=== PATIENT | male | born 1985 | race Caucasian/White ===

== ENCOUNTER 2017-07-17 15:08 | Emergency (ER) | payer SELFPAY ==
[2017-07-17] MEDS ORDERED: ONDANSETRON 4 MG/2 ML VIAL ONE (15:47)
[2017-07-17] MEDS ORDERED: MORPHINE 4 MG/ML SYR ONE ×2 (15:47→16:32)
[2017-07-17] MEDS ORDERED: NA CHLORIDE 0.9% 1,000 ML ONE (15:52)
[2017-07-17 16:13] LABS: Absolute Lymphocytes (CBC) 1.6 K/uL (0.7-4.9); Absolute Monocytes 0.7 K/uL (0.1-1.3); Absolute Neutrophil 6.2 K/uL (1.8-8.0); Basophils % 0.7 % (0-1.3); Eosinophils % 1.7 % (0-4.4); Hematocrit 46.8 % (39.6-49.0); Lymphocytes % 18.8 % (15.3-44.8); MCH 29.1 pg (27.0-35.0); MCV 83.4 fL (80-100); MPV 8.1 fL (7.6-11.3); Monocytes % 7.5 % (3.3-12.3); RBC Red Blood Cell Count 5.62 M/uL (4.33-5.43)
[2017-07-17 16:23] LABS: BUN Blood Urea Nitrogen 16 mg/dL (6-20); Bicarbonate 27 mEq/L (21-31); Glucose Level 88 mg/dL (65-120); Potassium 3.6 mEq/L (3.6-5.0); Sodium Level 135 mEq/L (135-145)
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
[2017-07-17] MEDS ORDERED: IBUPROFEN 200 MG TAB PO ONE (17:22)
[2017-07-17 19:13] LABS: Urine Blood NEGATIVE (NEG); Urine Glucose NEGATIVE (NEG); Urine Protein NEGATIVE (NEG); Urine pH 5.5 (5.0-7.0)
== END 2017-07-17 17:32 | disposition home or self-care (01) ==
LOC: ER 15:08
DX: M54.5 Low back pain (principal); V59.49XA Driver of pick-up truck or van injured in collision with other motor vehicles in traffic accident, initial encounter
CPT/HCPCS: 36415; 70450; 71260; 72125; 74177; 80048; 81003; 85025; 86850; 86900; 86901; 96361; 96374; 96375; 99284; J2405; J7030; Q9967